=== PATIENT | female | born 1975 | race Caucasian/White ===

== ENCOUNTER 2024-05-18 10:41 | Emergency (ER) | payer OTHER ==
[2024-05-18 10:46] VITALS: RESP 16; TEMP 98.1
--- NOTE | 2024-05-18 10:57 | ED ---
Upper Extremity HPI - General Chief Complaint: Extremity Injury, Upper Stated Complaint: Fall Time Seen by Provider: 05/18/24 10:55 Source: patient, RN notes reviewed Mode of arrival: ambulatory Limitations: no limitations - History of Present Illness Initial Comments: 48-year-old female presenting to the ER for evaluation of right third digit injury. Patient is currently residing at [facility] for rehabilitation of meth. Patient entered into rehab 2 days ago. Prior to entering treatment patient states she injured her right third digit. Patient was seen at [place] [facility] where x-rays were obtained and she was told she sprained her finger. Patient was walking up stairs today when she accidentally tripped and fell injuring her finger again. She denies any head injury, loss of consciousness or blood thinner use. Patient is reporting a tight sensation to right third digit PIP joint. There is limited range of motion due to swelling. Patient denies paresthesias. Nothing for pain at this time. No other injuries or complaints. - Related Data Allergies Allergy/AdvReac Type Severity Reaction Status Date / Time No Known Allergies Allergy Verified 05/18/24 10:45 Review of Systems ROS Statement: Those systems with pertinent positive or pertinent negative responses have been documented in the HPI. ROS Other: All systems not noted in ROS Statement are negative. Past Medical History Smoking Status: Current every day smoker, Vaper Past Alcohol Use History: None Reported Past Drug Use History: Methamphetamine General Exam Limitations: no limitations General appearance: alert, in no apparent distress Respiratory exam: Present: normal lung sounds bilaterally. Absent: respiratory distress, wheezes, rales, rhonchi, stridor Cardiovascular Exam: Present: regular rate, normal rhythm, normal heart sounds. Absent: systolic murmur, diastolic murmur, rubs, gallop, clicks Extremities exam: Present: normal capillary refill, other (Edema and minimal contusion to right third digit PIP joint. Limited range of motion due to swelling.) Neurological exam: Present: alert, oriented X3, CN II-XII intact Skin exam: Present: warm, dry, intact, normal color. Absent: rash Course Vital Signs 05/18/24 05/18/24 10:43 11:35 Temperature 98.1 F 98.1 F Pulse Rate 67 65 Respiratory 16 16 Rate Blood Pressure 109/79 105/81 O2 Sat by Pulse 95 96 Oximetry Medical Decision Making - Medical Decision Making Was pt. sent in by a medical professional or institution ([facility], [employer], urgent care, hospital, or residential...) When possible be specific @ -Patient sent by [facility] for evaluation of right third digit Did you speak to anyone other than the patient for history (EMS, parent, family, police, friend...)? What history was obtained from this source @ -No Did you review nursing and triage notes (agree or disagree)? Why? @ -I reviewed and agree with nursing and triage notes Were old charts reviewed (outside hosp., previous admission, EMS record, old EKG, old radiological studies, urgent care reports/EKG's, residential records)? Report findings @ -No old charts were reviewed Differential Diagnosis (chest pain, altered mental status, abdominal pain women, abdominal pain men, vaginal bleeding, weakness, fever, dyspnea, syncope, headache, dizziness, GI bleed, back pain, seizure, CVA, palpatations, mental health, musculoskeletal)? @ -Differential Musculoskeletal: Muscular strain, contusion, ligament sprain, fracture, arthritis, septic arthritis, bursitis, cellulitis, muscle spasm, nerve compression, DVT, arterial occlusion, herpes zoster, electrolyte abnormality, tumor.... This is not meant to be in all inclusive list EKG interpreted by me (3pts min.). @ -None done X-rays interpreted by me (1pt min.). @ -Right hand x-ray interpreted by me negative for acute fractures. CT interpreted by me (1pt min.). @ -None done U/S interpreted by me (1pt. min.). @ -None done What testing was considered but not performed or refused? (CT, X-rays, U/S, labs)? Why? @ -None What meds were considered but not given or refused? Why? @ -None Did you discuss the management of the patient with other professionals (professionals i.e. [facility], [employer], lab, RT, psych nurse, social research assistant, manager transport, teacher, enforcement safety officer, insurance case manager)? Give summary @ -No Was smoking cessation discussed for >3mins.? @ -No Was critical care preformed (if so, how long)? @ -No Were there social determinants of health that impacted care today? How? (Homelessness, low income, unemployed, alcoholism, drug addiction, transportation, low edu. Level, literacy, decrease access to med. care, penitentiary, rehab)? @ -Patient currently residing at [facility] for meth rehabilitation. Was there de-escalation of care discussed even if they declined (Discuss DNR or withdrawal of care, Hospice)? DNR status @ -No What co-morbidities impacted this encounter? (DM, HTN, Smoking, COPD, CAD, Cancer, CVA, ARF, Chemo, Hep., AIDS, mental health diagnosis, sleep apnea, morbid obesity)? @ -None Was patient admitted / discharged? Hospital course, mention meds given and route, prescriptions, significant lab abnormalities, going to OR and other pertinent info. @ -Discharge. 48-year-old female presented to the ER for evaluation of right third digit injury. Patient sent from [facility] for evaluation. History and physical exam completed. Vitals within acceptable limits. Patient is neurovascularly intact. X-rays obtained negative for acute fractures or dislocations. Patient will be placed in a finger splint for pain control and comfort. Patient given ibuprofen. Conservative treatment options discussed. Strict return parameters discussed. Patient discharged in stable condition with follow-up to PCP. Patient verbally expressed understanding and agreement with care plan. Case discussed with ED attending, Dr. Borrego. Undiagnosed new problem with uncertain prognosis? @ -No Drug Therapy requiring intensive monitoring for toxicity (Heparin, Nitro, Insulin, Cardizem)? @ -No Were any procedures done? @ -No Diagnosis/symptom? @ -Finger sprain Acute, or Chronic, or Acute on Chronic? @ -Acute Uncomplicated (without systemic symptoms) or Complicated (systemic symptoms)? @ -Uncomplicated Side effects of treatment? @ -No Exacerbation, Progression, or Severe Exacerbation? @ -No Poses a threat to life or bodily function? How? (Chest pain, [place], [place], pneumonia, PE, COPD, DKA, ARF, appy, cholecystitis, CVA, Diverticulitis, Homicidal, Suicidal, threat to staff... and all critical care pts) @ -No - Radiology Data Radiology results: report reviewed, image reviewed Disposition Clinical Impression: Finger sprain Disposition: HOME SELF-CARE Condition: Stable Instructions (If sedation given, give patient instructions): Finger Sprain (ED) Additional Instructions: Follow-up with PCP. Take [id number] ibuprofen or Tylenol for pain contr ol. Return to the ER for any new or worsening concerns. Is patient prescribed a controlled substance at d/c from ED?: No Referrals: None,Stated [Primary Care Provider] - 1-2 days Forms: Area PCPs Time of Disposition: 11:42
[2024-05-18] MEDS: IBUPROFEN 600 MG TAB PO STA (11:04)
--- NOTE | 2024-05-18 11:28 | XR ---
EXAMINATION TYPE: XR hand complete RT DATE OF EXAM: 05/18/2024 11:23 AM COMPARISON: None. CLINICAL INDICATION: Female, 48 years old with history of third digit injury, pain TECHNIQUE: Frontal, lateral and oblique images of the right hand are obtained. FINDINGS: There is no acute fracture/dislocation evident in the right hand with particular attention to the third finger. The joint spaces in the right hand appear within normal limits. The overlying soft tissue appears unremarkable. IMPRESSION: There is no acute fracture or dislocation in the right hand. [facility], , 05/18/2024 11:26 AM
[2024-05-18 11:50] VITALS: BP 105/81; PULSE 65
== END 2024-05-18 12:01 | disposition home or self-care (01) ==
LOC: EC 10:41
DX: S63.612A Unspecified sprain of right middle finger, initial encounter (principal); F17.290 Nicotine dependence, other tobacco product, uncomplicated; W01.0XXA Fall on same level from slipping, tripping and stumbling without subsequent striking against object, initial encounter; Y93.01 Activity, walking, marching and hiking
CPT/HCPCS: 99283